=== PATIENT | female | born 2000 | race Caucasian/White ===

== ENCOUNTER 2024-02-04 18:00 | Inpatient (IN) | payer BC, OTHER ==
[2024-02-04] MEDS ORDERED: Misoprostol 200 MCG TAB PR PRN (22:02)
[2024-02-04] MEDS ORDERED: Lidocaine 1% (PF) 30 ML VIAL SC PRN (22:02)
[2024-02-04] MEDS ORDERED: Promethazine HCl 25 MG/ML VIAL IM PRN (22:02)
[2024-02-04] MEDS ORDERED: Methylergonovine 0.2 MG/ML VIAL IM PRN (22:02)
[2024-02-04] MEDS ORDERED: HYDROcodone/Acetaminophen 5/325 mg Tablet PO PRN (22:02)
[2024-02-04] MEDS ORDERED: hydrALAZINE 20 MG/ML VIAL SLOW IVP PRN (22:02)
[2024-02-04] MEDS ORDERED: Acetaminophen 500 MG TAB PO PRN (22:02)
[2024-02-04] MEDS ORDERED: Diphenoxylate HCl/Atropine Tablet PO PRN (22:02)
[2024-02-04] MEDS ORDERED: Carboprost 250 MCG/ML AMP IM PRN (22:02)
[2024-02-04 22:23] LABS: Hematocrit 34.7 % (34.9-44.5); Hemoglobin 11.7 g/dL (12.0-15.5); Mean Corpuscular HGB CONC 33.7 g/dL (32.0-36.0); Platelet Count 133 10x3/uL (150-450); RBC Distribution Width 12.6 % (11.5-14.5); White Blood Cell (WBC) Count 7.6 10x3/uL (3.5-10.5)
[2024-02-04] MEDS: Misoprostol 100 MCG TAB ONE (22:35)
[2024-02-04 22:44] LABS: HBsAg Index 0.18 S/CO (0-0.99); Hep B Surf Ag - L&D Non-Reactive S/CO (NonReactive)
[2024-02-04 22:45] LABS: Syphilis Antibody Nonreactive (Nonreactive); Syphilis Antibody Index 0.09 S/CO (<1.00 Non-Reactive)
[2024-02-04] MEDS ORDERED: Lactated Ringer's 1,000 ML IV SCH (23:00)
[2024-02-05 01:10] VITALS: BMI 28.8
[2024-02-05] MEDS: Misoprostol 100 MCG TAB VAG SCH (09:51)
[2024-02-05] MEDS: fentaNYL 50 mcg/mL 1 mL Vial SLOW IVP PRN (14:23)
[2024-02-05] MEDS: Oxytocin 30 units/NS 500 ML 500 ML IV SCH ×2 (14:48→18:23)
[2024-02-05] MEDS: Ondansetron PF 4 MG/2 ML Vial IVP PRN (16:39)
[2024-02-05] MEDS: Ibuprofen 800 MG TAB PO PRN (18:59)
[2024-02-05] MEDS ORDERED: Benzocaine-Menthol 82.5 ML CAN TOP PRN (21:23)
[2024-02-05] MEDS ORDERED: Bisacodyl 10 MG SUPP PR PRN (21:23)
[2024-02-05] MEDS ORDERED: Ondansetron PF 4 MG/2 ML Vial IVP PRN (21:23)
[2024-02-05] MEDS ORDERED: Preparation H Ointment 28 GM TUBE PR PRN (21:23)
[2024-02-05] MEDS ORDERED: diphenhydrAMINE 25 MG CAP PO PRN (21:23)
[2024-02-05] MEDS ORDERED: Lanolin Ointment 7 GM TUBE TOP PRN (21:23)
[2024-02-05] MEDS ORDERED: HYDROcodone/Acetaminophen 5/325 mg Tablet PO PRN (21:23)
[2024-02-05] MEDS ORDERED: hydrALAZINE 20 MG/ML VIAL SLOW IVP PRN (21:23)
[2024-02-05] MEDS ORDERED: Promethazine HCl 25 MG/ML VIAL IM PRN (21:23)
[2024-02-05] MEDS ORDERED: Milk Of Magnesia 30 ML UDCUP PO PRN (21:23)
[2024-02-06] MEDS: Docusate 100 MG CAP PO SCH ×2 (04:37→08:55)
[2024-02-06] MEDS: Ibuprofen 800 MG TAB PO SCH ×2 (04:40→13:40)
[2024-02-06] MEDS: Boostrix 0.5 ML (Tdap) VIAL (>/=7 yrs of age) IM ONE (07:54)
[2024-02-06] MEDS: Ferrous Sulfate 325 MG TAB PO SCH (08:03)
[2024-02-06] MEDS: Prenatal Vitamin 1 TAB PO SCH (11:14)
[2024-02-06 19:27] VITALS: BP 99/59; TEMP 98.3
== END 2024-02-06 20:00 | disposition home or self-care (01) | DRG 807 ==
LOC: CSHLD 19:37 → CSHPP 02-05 21:10
PROVIDERS: ADMIT Student in an Organized Health Care Education/Training Program; ATTEND Student in an Organized Health Care Education/Training Program
PROC: 10907ZC Drainage of Amniotic Fluid, Therapeutic from Products of Conception, Via Natural or Artificial Opening (ICD-10-PCS; principal; 2024-02-05)
PROC: 10E0XZZ Delivery of Products of Conception, External Approach (ICD-10-PCS; 2024-02-05)
DX: O48.0 Post-term pregnancy (principal); Z37.0 Single live birth; Z3A.40 40 weeks gestation of pregnancy; O69.81X0 Labor and delivery complicated by cord around neck, without compression, not applicable or unspecified
CPT/HCPCS: 85027; 86762; 86780; 86850; 86900; 86901; 87340; J2405; J2590; J3010